=== PATIENT | female | born 1950 | race African-American/Black ===

== ENCOUNTER → 2018-02-27 | Outpatient (CLI) | payer MEDICARE, MEDICAID ==
[~2018-02-27] MED LIST: ALBUTEROL (0.083%) 2.5MG/3ML NEB ONE; ASPI-1159 PO; ATROV3 NS; BUDE6.9H IH; BUDE6.9H INH; HYDR-4001 PO; HYDR25TA PO; IPRA4AER IH; MELO-104 MT; MELO-106 PO; UBID100C45 PO
== END | disposition home or self-care (01) ==
LOC: PF 13:00
PROVIDERS: ATTEND Internal Medicine
DX: J44.9 Chronic obstructive pulmonary disease, unspecified (principal)
CPT/HCPCS: 94060; 94727; 94729; J7611